=== PATIENT | female | born 1965 | race Caucasian/White ===

== ENCOUNTER 2021-12-14 20:55 | Emergency (ER) | payer MEDICAID ==
[~2021-12-14] VITALS: Ht 165.1 cm; Wt 79.5 kg
[2021-12-14 21:06] VITALS: BP 140/99
[2021-12-15] MEDS ORDERED: ORPH100T2 PO (09:49)
[2021-12-15] MEDS ORDERED: HYDR-3972 PO (09:49)
== END 2021-12-15 00:55 | disposition left against medical advice (07) ==
LOC: ER 20:56
DX: R22.1 Localized swelling, mass and lump, neck (principal); Z53.21 Procedure and treatment not carried out due to patient leaving prior to being seen by health care provider

== ENCOUNTER 2021-12-15 04:31 | Emergency (ER) | payer MEDICAID ==
[~2021-12-15] VITALS: Ht 165.1 cm; Wt 79.5 kg
--- NOTE | 2021-12-15 08:02 | NUR ---
C/O B Shoulder pain and neck pain. States that there is a pocket of fluid on the back of her neck.
[2021-12-15] MEDS ORDERED: HYDROcodone/acetaminophen 10/325mg tab PO ONE (08:15)
[2021-12-15] MEDS ORDERED: orphenadrine citrate 60mg/2ml inj. IM ONE (08:15)
[2021-12-15] MEDS ORDERED: ketorolac trometh. 30mg/ml inj. IM ONE (08:15)
[2021-12-15] MEDS ORDERED: ORPH100T2 PO (09:49)
[2021-12-15] MEDS ORDERED: HYDR-3972 PO (09:49)
[2021-12-15 10:05] VITALS: BP 142/84
--- NOTE | 2021-12-15 10:05 | NUR ---
Pt given and understands d/c instructions. Ambulatory with a steady gait.
== END 2021-12-15 10:05 | disposition home or self-care (01) ==
LOC: ER 04:33
DX: M47.892 Other spondylosis, cervical region (principal); G89.29 Other chronic pain; E03.9 Hypothyroidism, unspecified; Z91.040 Latex allergy status; Z79.899 Other long term (current) drug therapy; Z88.0 Allergy status to penicillin
CPT/HCPCS: 72040; 72070; 96372; 99284; J1885; J2360